=== PATIENT | female | born 1945 | race African-American/Black ===

== ENCOUNTER 2017-07-22 11:58 | Inpatient (IN) ==
[2017-07-22] MEDS ORDERED: ONDANSETRON 4 MG/2 ML VIAL IV PRN (12:00)
[2017-07-22] MEDS ORDERED: SODIUM CHLORIDE 0.9% 250 ML IV PRN (18:51)
--- NOTE | 2017-07-22 18:56 | Hospitalist Progress Note ---
Assessment and Plan (1) Symptomatic anemia Status: Acute Assessment and plan: The patient will be admitted to the hospital and we will obtain anemia laboratories. Following laboratory testing the patient will begin transfusion of 3 units packed red blood cells. We will obtain GI consultation tomorrow to consider endoscopy. Current Visit: Yes Hospitalist: Subjective Interval history: This is a 71-year-old lady referred from the office of CARMEN Leon. The patient presented there with dizziness and weakness. The patient was found to have profound anemia with hemoglobin 6.2. The patient was called from home to be directly admitted to the hospital for further evaluation of profound anemia. The patient and daughter are present. They deny a previous diagnosis of anemia. The patient no longer has menstrual cycle. They deny chemotherapy. The patient denies seeing blood in stool or coughing up blood. The patient denies hematuria. The patient's weakness and dizziness are moderate, continuous , and worsening. The patient's symptoms are associated with left earache. They are not associated with angina, palpitations, fever. A complete 10 system review is obtained all systems not mentioned in history present illness were negative. The patient was screened for tobacco and found to be an occasional smoker. She was given 4 minutes tobacco cessation advice. Exam - Constitutional Vitals: Period Temp Pulse Resp BP Sys/Lopez Pulse Ox Last 24 Hr 99 F 104 20 128/76 98 Exam: Constitutional System: Mild distress. No tremulousness. Head: Normocephalic, atraumatic. Ears, Nose and Throat System: No evidence of Otitis or Mastoiditis. No epistaxis or discharge Eyes System: Pupils equal, round, and reactive. Extraocular muscles intact. Neck: Supple, without adenopathy, No jugular venous distention. No thyromegaly , neck mass, or prior surgery apparent. Respiratory System: Chest clear to auscultation. Cardiovascular System: Heart with regular tachycardic rate and rhythm. 1+ flow murmur. GI System: Abdomen soft, nontender. Normo active bowel sounds present. Musculoskeletal System: limbs with no pedal edema. Full distal pulses. Neurological System: No discernable sensory deficit. No aphasia Psychiatric System: Conversation is rational Capillary Refill: less than 2 sec Results - Labs Lab Results: I have reviewed the past 24 hour labs
[2017-07-22 19:09] LABS: Basophils % 0.2 % (0.0-0.8); Eosinophils # 0.2 10*3/uL (0.0-0.87); Eosinophils % 2.4 % (0.00-10.9); Hematocrit 18.6 VOL% (35.7-47.0); Immature Granulocytes % 0.5 %; Immature Granulocytes Absolute 0.03 #; Lymphocytes # 1.3 10*3/uL (1.4-4.0); Lymphocytes % 19.1 % (21.3-54.2); Mean Corpuscular HGB Conc 30.1 GM/DL (32-36); Mean Corpuscular Hemoglobin 26 PG (27-34); Mean Corpuscular Volume 86.5 FL (87-102); Mean Platelet Volume 9.2 FL (9.6-12.0); Monocytes # 0.9 10*3/uL (0.11-0.8); Monocytes % 13.5 % (1.7-12.7); Neutrophils # 4.3 10*3/uL (1.4-7.4); Neutrophils % 64.3 % (38.7-73.9); Platelet Count 432 T/CUMM (130-400); Red Blood Count 2.15 MC/CUMM (3.8-5.5); Red Cell Distribution Width 14.8 % (9.3-17.3); White Blood Count 6.7 T/CUMM (4-12)
[2017-07-22 19:11] LABS: Hemoglobin 5.6 GM/DL (12.0-16.0)
[2017-07-22 19:34] LABS: % Iron Saturation 4.9 % (18-50); Ferritin 10.5 ng/ml (8-252)
[2017-07-22 19:40] LABS: Alanine Aminotransferase 16 U/L (13-56); Albumin 2.9 G/DL (3.4-5.0); Alkaline Phosphatase 50 U/L (45-117); Aspartate Amino Transferase 16 U/L (0-37); Bilirubin,Total < 0.39 MG/DL (0.2-1.0); Blood Urea Nitrogen 7 MG/DL (7-18); Calcium 8.2 MG/DL (8.5-10.1); Cholesterol 145 MG/DL (50-200); Glucose 157 MG/DL (74-106); HDL Cholesterol 48 MG/DL (40-60); Magnesium 2.4 MG/DL (1.8-2.4); Osmolality,Calculated 279.4 MOS/KG (273-304); Potassium 4.1 MMOL/L (3.5-5.1); Risk Ratio 3.02; Sodium 140 MMOL/L (136-145); Total Protein 5.4 G/DL (6.4-8.3); Triglycerides 69 MG/DL (2-150); VLDL CHOLESTEROL 13.8 MG/DL
[2017-07-22 19:41] LABS: Folate 23.2 NG/ML (5.4-24.0)
--- NOTE | 2017-07-22 19:52 | Hospitalist History & Physical ---
Assessment and Plan (1) Symptomatic anemia Status: Acute Assessment and plan: The patient is admitted to the hospital with Symptomatic microcytic anemia with iron deficiency. Following laboratory testing the patient will begin transfusion of 3 units packed red blood cells. We will obtain GI consultation tomorrow to consider endoscopy. Current Visit: Yes History of Present Illness Chief complaint: weakness, left ear pain History of present illness: This is a 71-year-old lady referred from the office of CARMEN Leon. The patient presented there with dizziness and weakness. The patient was found to have profound anemia with hemoglobin 6.2. The patient was called from home to be directly admitted to the hospital for further evaluation of profound anemia. The patient and daughter are present. They deny a previous diagnosis of anemia. The patient no longer has menstrual cycle. They deny chemotherapy. The patient denies seeing blood in stool or coughing up blood. The patient denies hematuria. The patient's weakness and dizziness are moderate, continuous , and worsening. The patient's symptoms are associated with left earache. They are not associated with angina, palpitations, fever. A complete 10 system review is obtained all systems not mentioned in history present illness were negative. The patient was screened for tobacco and found to be an occasional smoker. She was given 4 minutes tobacco cessation advice. Home Medications Medication Instructions Recorded Confirmed Type No Known Home Medications [No 07/22/17 07/22/17 History Known Home Medications] Allergies Allergy/AdvReac Type Severity Reaction Status Date / Time No Known Allergies Allergy Verified 07/22/17 18:28 Medical,Surgical,& Family Hx - Medical History HEENT: History of: Ear Problem (ear left pain) - Surgical History Abdominal Surgeries: Patient denies: Abdominal Surgery Reproductive Surgeries: Surgical HX of;: Hysterectomy Patient denies;: Genitourinary Surgery - Family History Family History: Reports;: Family Diabetes (mother), Family Hypertension (mother) Denies;: Family Cancer, Family Heart Disease, Family Stroke, Additional Family History - Social History Smoking Status: Never smoker Frequency of Alcohol Use: None Type of Drug Use: None Marital Status: Lives With:: Alone Functional capacity: independent ambulation 12 point system: reviewed and no additional remarkable complaints except as stated Exam - Constitutional Vitals: Period Temp Pulse Resp BP Sys/Lopez Pulse Ox Last 24 Hr 99 F 104 20 128/76 98 Exam: Constitutional System: Mild distress. No tremulousness. Head: Normocephalic, atraumatic. Ears, Nose and Throat System: No evidence of Otitis or Mastoiditis. No epistaxis or discharge Eyes System: Pupils equal, round, and reactive. Extraocular muscles intact. Neck: Supple, without adenopathy, No jugular venous distention. No thyromegaly , neck mass, or prior surgery apparent. Respiratory System: Chest clear to auscultation. Cardiovascular System: Heart with regular tachycardic rate and rhythm. 1+ flow murmur. GI System: Abdomen soft, nontender. Normo active bowel sounds present. Musculoskeletal System: limbs with no pedal edema. Full distal pulses. Neurological System: No discernable sensory deficit. No aphasia Psychiatric System: Conversation is rational Capillary Refill: less than 2 sec Results - Labs CBC & BMP: 07/22/17 18:45 07/22/17 18:45 Lab Results: I have reviewed the past 24 hour labs
[2017-07-22] MEDS: SODIUM CHLORIDE 0.9% 1,000 ML IV SCH (20:27)
[2017-07-22 21:31] LABS: Apearance,Urine CLEAR (Clear); Bilirubin,Urine Negative (Negative); Blood, Urine Negative (Negative); Glucose,Urine (UA) Negative (Negative); Ketones,Urine Negative (Negative); Nitrite,Urine Negative (Negative); Protein,Urine Negative; RBC,Urine <1 /HPF (0-4); Urine Color Straw (Yellow); Urine Specific Gravity 1.005 (1.001-1.035); Urine Urobilinogen < 2.0 EU/DL (0.2-1.0); WBC,Urine 3 /HPF (0-6)
[2017-07-23] MEDS: ACETAMINOPHEN 325 MG TABLET PO PRN ×3 (00:59→21:09)
[2017-07-23 06:31] LABS: Hemoglobin A1 (Alkaline) 97.3 % (96.5-98.5); Hemoglobin A2 (Alkaline) 2.7 % (1.5-3.5)
[2017-07-23 08:26] LABS: Hematocrit 28.8 VOL% (35.7-47.0)
[2017-07-23 08:33] LABS: Hemoglobin 9.2 GM/DL (12.0-16.0)
[2017-07-23] MEDS: PANTOPRAZOLE 40 MG TABLET PO SCH (08:38)
[2017-07-23] MEDS: SODIUM CHLORIDE 0.9% 1,000 ML IV SCH (08:38)
--- NOTE | 2017-07-23 09:26 | Gastrointestinal Consult Note ---
Assessment and Plan (1) Symptomatic anemia Status: Acute Assessment and plan: 07/23-Onset of weakness and fatigue with findings of low hemoglobin w/o overt bleeding. No prior history of anemia/blood transfusions in the past. Iron studies noted as below. Prior endoscopy by Dr Sandoval as noted below. Monitor serial H&H. Transfuse as necessary. Check for other endoscopy records at endoscopic clinic consider tentative EGD tomorrow to further evaluate. Plan and addendum to follow by Dr Brito. Current Visit: Yes History of Present Illness Chief complaint: Weakness, anemia History of present illness: Ms. Martínez is a 71 year old female who was admitted to the hospital on yesterday after being seen in clinic for complaints of dizziness and weakness. Patient states that over the last several days she began not feeling well with increased weakness. She also has an complaints of some ear pain therefore she presented to the clinic for evaluation. At that time, patient was found to have hemoglobin of 6 and was referred to our facility for further evaluation. Patient states that she has no prior history of anemia in the past. She denies any prior history of GI bleeding. She states that she had no other associated symptoms with her anemia at this time. She denies any melena or hematochezia. Denies any nausea, vomiting or abdominal pain. States she has no dysphagia but has complained of some GERD which she does not take anything far. She also has noted some dyspepsia symptoms with increased belching bloating as of recently. Patient states she takes 1 Advil every other day but no other NSAIDs. She does take a baby aspirin daily as well. Patient does smoke but she denies any history of alcohol use. She states that she has lost approximately 10-15 pounds over the last year just with decreased appetite. She has never had a blood transfusion in the past. Patient was admitted with H&H of 03/20 and after 3 units on 07/31. Stools for occult blood are pending at present time. Iron studies are noted with low iron at 15, saturation of 4.9 with normal TIBC and ferritin. MCV noted at 86. Prior endoscopy has been done by Dr. Sandoval. Most recent endoscopy noted in 2003 with findings of internal hemorrhoids on C scope and submucosal leiomyoma with hiatal hernia on EGD. No reported prior history of peptic ulcer disease in the past patient states she has had more recent endoscopy but no reports noted in facility database. Home Medications Medication Instructions Recorded Confirmed Type No Known Home Medications [No 07/22/17 07/22/17 History Known Home Medications] Allergies Allergy/AdvReac Type Severity Reaction Status Date / Time No Known Allergies Allergy Verified 07/22/17 18:28 Medical,Surgical,& Family Hx - Medical History HEENT: History of: Ear Problem (ear left pain) - Surgical History Abdominal Surgeries: Patient denies: Abdominal Surgery Reproductive Surgeries: Surgical HX of;: Hysterectomy Patient denies;: Genitourinary Surgery - Family History Family History: Reports;: Family Diabetes (mother), Family Hypertension (mother) Denies;: Family Cancer, Family Heart Disease, Family Stroke, Additional Family History - Social History Smoking Status: Never smoker Frequency of Alcohol Use: None Type of Drug Use: None 12 point system: reviewed and no additional remarkable complaints except as stated - Constitutional Constitutional: Present: as per HPI, fatigue, weakness - EENT Eyes: Present: as per HPI Ears: Present: as per HPI Nose, mouth and throat: Present: as per HPI - Cardiovascular Cardiovascular: Present: as per HPI - Respiratory Respiratory: Present: as per HPI - Gastrointestinal Gastrointestinal: Present: as per HPI - Genitourinary Genitourinary: Present: as per HPI - Musculoskeletal Musculoskeletal: Present: as per HPI - Neurological Neurological: Present: as per HPI - Psychiatric Psychiatric: Present: as per HPI - Endocrine Endocrine: Present: as per HPI Exam - Constitutional Vitals: Period Temp Pulse Resp BP Sys/Lopez Pulse Ox Last 24 Hr 96.4 F-99.7 F 66-108 18-20 97-129/49-85 96-100 General appearance: normal weight, no acute distress - Head Head exam: Present: normal inspection, normocephalic - Eye Eye exam: Present: other (lids and conjunctiva unremarkable). Absent: scleral icterus - ENT ENT exam: Present: normal exam, normal oropharynx - Neck Neck exam: Present: normal inspection - Respiratory Respiratory exam: Present: clear to auscultation bilaterally. Absent: rales, rhonchi, wheezes - Cardiovascular Cardiovascular exam: Present: regular rate and rhythm. Absent: diastolic murmur , JVD, systolic murmur - GI/Abdominal GI/Abdominal exam: Present: normal bowel sounds, soft. Absent: ascites, distended, mass, organomegaly, tenderness - Extremities Exam Extremities exam: Present: normal inspection, full ROM - Back Exam Back exam: Present: normal inspection - Neurological Exam Neurological exam: Present: alert, oriented X3 - Psychiatric Psychiatric exam: Present: normal affect, normal mood - Skin Skin exam: Present: normal color, warm, dry Results - Labs CBC & BMP: 07/23/17 08:08 07/22/17 18:45 Lab Results: I have reviewed the past 24 hour labs
--- NOTE | 2017-07-23 12:13 | Hospitalist Progress Note ---
Assessment and Plan (1) Symptomatic anemia Status: Acute Assessment and plan: transfused with good increase in HGB to 9.2 from 5.6. GI to see and likely will do EGD tomorrow. Replace iron. Current Visit: Yes Hospitalist: Subjective Interval history: Mrs Martínez is feeling better this morning after transfusion. I reviewed her history with her again and she denies epistaxis, hematemesis, hematochezia, vaginal bleeding or any other blood loss. She remembers her cscope 3 years ago being normal. She has never been anemic before. She has never been much of an eater- usually 1 meal a day, sometimes breakfast also. She thinks her anemia may be due to nutritional problems. Her B12 and folate are normal, but her iron studies are low. Exam - Constitutional Vitals: Period Temp Pulse Resp BP Sys/Lopez Pulse Ox Last 24 Hr 96.4 F-99.7 F 66-108 18-20 97-129/49-85 94-100 General appearance: normal weight, no acute distress - Eye Eye exam: Present: EOMI. Absent: scleral icterus - Respiratory Respiratory exam: Present: clear to auscultation bilaterally - Cardiovascular Cardiovascular exam: Present: regular rate and rhythm - GI/Abdominal GI/Abdominal exam: Present: normal bowel sounds, soft - Extremities Exam Extremities exam: Absent: edema Results - Labs CBC & BMP: 07/23/17 08:08 07/22/17 18:45 Lab Results: I have reviewed the past 24 hour labs
[2017-07-23] MEDS ORDERED: MAGNESIUM HYDROXIDE SUSP 30 ML UDCUP PO PRN (12:20)
[2017-07-23] MEDS ORDERED: BISACODYL 5 MG TABLET PO PRN (15:34)
[2017-07-23] MEDS: LINACLOTIDE 145 MCG CAPSULE PO PRN (16:45)
[2017-07-24 06:09] LABS: Hematocrit 27.2 VOL% (35.7-47.0); Hemoglobin 8.6 GM/DL (12.0-16.0)
[2017-07-24] MEDS ORDERED: LIDOCAINE 2% 5 ML VIAL ONE (12:31)
[2017-07-24] MEDS ORDERED: PROPOFOL 200 MG/20 ML VIAL IV ONE (12:31)
--- NOTE | 2017-07-24 12:31 | History and Physical Update ---
History and Physical Update - History and Physical H&P was reviewed, the patient examined and there: are no changes in the patients condition since last H&P was completed. - Physical Exam Mental Status: alert and oriented Heart: regular rate and rhythm Lung: clear to auscultation Abdomen: within normal limits Vitals: within normal limits
--- NOTE | 2017-07-24 12:43 | Operative Note ---
Date of procedure: 07/24/17 Pre-op diagnosis: GI bleed, iron deficiency Procedure: Procedure: Esophagogastroduodenoscopy with biopsies gastric ulcer Brief clinical abstract: 71-year-old female was admitted with weakness and marked anemia with iron deficiency. She has noted no gross GI bleeding. She has had some off-and-on nausea recently and 10 pound weight loss. Indication for procedure: Iron deficiency, nausea Endoscopic findings:[After informed consent was obtained, the patient was placed in the left lateral decubitus position. The gastroscope was inserted in the upper esophagus under direct vision with no resistance encountered. Esophageal mucosa appeared normal with squamocolumnar junction sharply demarcated at the diaphragmatic indentation. The endoscope was advanced in the stomach which was carefully examined including retroflexed view of the cardia and fundus. There was a large ulcer 4-5 cm in diameter with some mass-effect just below the GE junction in the proximal fundus extending posteriorly. Multiple biopsies were obtained from this and it was noted to have a firm consistency. Remainder the stomach appeared normal. The pyloric channel, duodenal bulb, second and third portion of the duodenum appeared normal. The endoscope was removed and patient appeared to tolerate the procedure well. Impression: Large gastric ulcer-malignant appearance Recommendations: CT abdomen/pelvis to evaluate further. Anesthesia: GETA (tiva) Surgeon / Physician: Torres Brito Estimated blood loss: minimal Specimens: other (Gastric ulcer) Condition: stable Disposition: post procedure unit Results - Labs CBC & BMP: 07/24/17 04:37 07/22/17 18:45 Discharge Plan - Discharge Medications No Action Linaclotide [Linzess] 290 mcg PO DAILY PRN PRN Reason: Constipation - Follow Up or Referral - Forms/Instructions
--- NOTE | 2017-07-24 12:44 | Anesthesia Post-Op ---
Anesthesia Post OP - Post Ansesthetic Evaluation Patient seen in post op: Yes Resp: within normal limits CV: within normal limits Mental: within normal limits Temp: within normal limits [id number]: within normal limits Nausea and Vomiting: within normal limits Pain: within normal limits
[2017-07-24] MEDS: SODIUM CHLORIDE 0.9% 1,000 ML IV SCH ×2 (14:27→16:22)
[2017-07-24] MEDS: PANTOPRAZOLE 40 MG TABLET PO SCH (15:18)
--- NOTE | 2017-07-24 16:45 | Consultation ---
Assessment and Plan (1) Otalgia of left ear Status: Acute Assessment and plan: Patient does not seem very bothered by this throughout interview and exam was unremarkable. We will continue to observe. Current Visit: Yes (2) Tinnitus Status: Acute Assessment and plan: This has improved with her transfusions. If it continues, I did discuss some possibility of outpatient management. Current Visit: Yes (3) Dizziness Status: Acute Assessment and plan: Most of her dizziness is change in position especially with standing. This has also improved with transfusions and likely secondary to her symptomatic anemia. I encouraged ambulation with assistance. Current Visit: Yes History of Present Illness - Data of Consult Patient: new to practice Consult date: 07/24/17 - Consult Narrative Reason for consult: Otalgia History of present illness: Ms. Martínez is a 71 year old female who complains of ear pain, dizziness, and tinnitus. She admits to intermittent ear pain without drainage. It does not seem very bothersome during her interview as her other symptoms. She has also noted recent dizziness and tinnitus which presents as pulsatile and ringing. She was admitted due to anemia and has been transfused during this hospitalization. She was also found to have a GI bleed. Since her transfusion, her symptoms have improved, but still present. She has been ambulating. CC: Janina Montgomery MD - Home Medications and Allergies Home Medications: Home Medications Medication Instructions Recorded Confirmed Type Linaclotide [Linzess] 290 mcg PO DAILY PRN 07/23/17 07/23/17 History Allergies/Adverse Reactions: Allergies Allergy/AdvReac Type Severity Reaction Status Date / Time No Known Allergies Allergy Verified 07/22/17 18:28 Medical,Surgical,& Family Hx - Medical History Neurology: No history of: Seizures HEENT: History of: Ear Problem (ear left pain) - Surgical History Abdominal Surgeries: Patient denies: Abdominal Surgery Reproductive Surgeries: Surgical HX of;: Hysterectomy Patient denies;: Genitourinary Surgery - Family History Family History: Reports;: Family Diabetes (mother), Family Hypertension (mother) Denies;: Family Cancer, Family Heart Disease, Family Stroke, Additional Family History - Social History Smoking Status: Current some day smoker Frequency of Alcohol Use: None Type of Drug Use: None Exam - Constitutional Vitals: Period Temp Pulse Resp BP Sys/Lopez Pulse Ox Last 24 Hr 97.6 F-99.1 F 66-85 16-24 106-140/57-068 96-100 General appearance: normal weight, no acute distress - Head Head exam: Present: normal inspection, normocephalic - Eye Eye exam: Present: EOMI - ENT ENT exam: Present: normal external ear exam, other (minimal cerumen in left ear) - Expanded ENT Exam Teeth exam: Present: other (Poor dentation) Throat exam: Present: normal inspection - Neck Neck exam: Present: normal inspection - Respiratory Respiratory exam: Present: other (Normal effort and movement bilaterally) - GI/Abdominal GI/Abdominal exam: Present: soft - Extremities Exam Extremities exam: Present: normal inspection - Neurological Exam Neurological exam: Present: alert, oriented X3, CN II-XII intact (groslly) - Psychiatric Psychiatric exam: Present: normal affect, normal mood - Skin Skin exam: Present: normal color, warm Results - Labs CBC & BMP: 07/24/17 04:37 07/22/17 18:45 Lab Results: I have reviewed the past 24 hour labs
--- NOTE | 2017-07-24 17:20 | Hospitalist Progress Note ---
Assessment and Plan (1) Otalgia of left ear Status: Acute Assessment and plan: with Tinnitus and dizziness. Plan Appreciates ENT's input Current Visit: Yes (2) Symptomatic anemia Status: Acute Assessment and plan: Patient has been transfused. She had an EGD which showed a Large gastric ulcer- malignant appearance Plan Follow CT of abd/pelvis Follow GI's recommendations Continue to monitor cbc and transfuse on a prn basis Current Visit: Yes Hospitalist: Subjective Interval history: Patient complains of a left ear pain. ENT saw in consultation Exam - Constitutional Vitals: Period Temp Pulse Resp BP Sys/Lopez Pulse Ox Last 24 Hr 97.6 F-99.1 F 66-85 16-24 106-140/57-068 96-100 General appearance: no acute distress - Head Head exam: Present: normal inspection - Expanded ENT Exam Teeth exam: Present: other (Poor dentation) Throat exam: Present: normal inspection - Respiratory Respiratory exam: Present: clear to auscultation bilaterally - GI/Abdominal GI/Abdominal exam: Present: normal bowel sounds - Extremities Exam Extremities exam: Present: normal inspection Results - Labs CBC & BMP: 07/24/17 04:37 07/22/17 18:45 Lab Results: I have reviewed the past 24 hour labs
[2017-07-24] MEDS: ACETAMINOPHEN 325 MG TABLET PO PRN (19:56)
[2017-07-25 05:43] LABS: Basophils % 0.3 % (0.0-0.8); Eosinophils # 0.2 10*3/uL (0.0-0.87); Eosinophils % 3.1 % (0.00-10.9); Hematocrit 30.1 VOL% (35.7-47.0); Hemoglobin 9.4 GM/DL (12.0-16.0); Immature Granulocytes % 0.3 %; Immature Granulocytes Absolute 0.02 #; Lymphocytes # 1.3 10*3/uL (1.4-4.0); Lymphocytes % 18.2 % (21.3-54.2); Mean Corpuscular HGB Conc 31.2 GM/DL (32-36); Mean Corpuscular Hemoglobin 27 PG (27-34); Mean Corpuscular Volume 86.2 FL (87-102); Mean Platelet Volume 9.4 FL (9.6-12.0); Monocytes # 0.8 10*3/uL (0.11-0.8); Monocytes % 11.8 % (1.7-12.7); Neutrophils # 4.7 10*3/uL (1.4-7.4); Neutrophils % 66.3 % (38.7-73.9); Platelet Count 424 T/CUMM (130-400); Red Blood Count 3.49 MC/CUMM (3.8-5.5); Red Cell Distribution Width 14.4 % (9.3-17.3); White Blood Count 7.1 T/CUMM (4-12)
[2017-07-25] MEDS: ACETAMINOPHEN 325 MG TABLET PO PRN (07:19)
[2017-07-25 08:12] VITALS: BP 114/56
--- NOTE | 2017-07-25 08:21 | CT Report ---
Exam: CT abdomen pelvis w con Date: 07/25/2017 4:00 AM Comparison: None Indication: Gastric ulcer, mass Total DLP: 398.5 mGy*cm Technical: Exam was performed oral contrast. Images were obtained from the lung bases to the iliac crest continuation through the pelvis with 100 cc of Omnipaque 350 with axial sagittal coronal imaging available for review. Dose reduction was performed with decreasing kv and mA and automated exposure Findings: Lung bases: No obvious infiltrates or effusions. The heart is mildly prominent. Liver and Spleen: 1.6 cm hypodensity mass is present in the lateral right hepatic lobe. The hepatic and portal veins are unremarkable. The spleen is intact. Gallbladder and Pancreas: Unremarkable Adrenals: Unremarkable Kidneys: Tiny cyst is present on the right kidney measuring 8.4 mm. There is no hydronephrosis perinephric fluid collections or focal mass with normal excretion otherwise noted. Stomach: Stomach is enlarged with low density and solid appearing mass present and some calcifications present. The stomach has lobulated margins. Stomach measures approximately 19 cm in height anterior posteriorly the stomach is measured at 14 cm and transversely 8.9 cm. No oral contrast is present in the stomach previous exam. Retroperitoneum: No enlarged lymph nodes. Aorta and IVC: Very minimal atherosclerotic plaque present. The iliac vessels are unremarkable. Bowel and Mesentery: Contrast is present within the large and small intestine without obvious mass lesions clearly seen. No obvious bowel obstruction or pneumoperitoneum present. The appendix is unremarkable. Pelvis: Bladder: Incompletely distended with contrast and fluid Fluid: No free fluid identified. Lymph nodes: No enlarged lymph nodes. Pelvic organs: The uterus appears be surgically absent or extremely atrophic Osseous structures: Degenerative change present in the lumbosacral spine with vacuum phenomena at L4-5. Only pelvis is intact. Facet arthropathy is noted. Impression: 1. Enlarged stomach with in homogeneity and lobulated mass lesions with some cystic and solid characteristics present. Differential diagnosis gastrointestinal stromal tumor tumor, leiomyosarcoma ,gastric lymphoma are considered in the differential 2. Hypodensity within the liver measuring 16 mm as well as in the right kidney measuring approximately 8.4 mm these appear to represent cystic findings. 3. Degenerative spondylosis change of the lumbosacral spine with vacuum phenomenon at L4-5. 4. Prior hysterectomy suspected PROCEDURE INTERPRETED AT [facility] DEPARTMENT OF RADIOLOGY Final Report Signed by: Dr. Torres Hernandez
[2017-07-25] MEDS: PANTOPRAZOLE 40 MG TABLET PO SCH (09:02)
--- NOTE | 2017-07-25 09:27 | Gastrointestinal Progress Note ---
Assessment and Plan (1) Symptomatic anemia Status: Acute Assessment and plan: 07/25-EGD and CT findings noted as below. H&H is stable at this time. Tolerating diet. Further plan an addendum to followed by Dr. Brito 07/23-Onset of weakness and fatigue with findings of low hemoglobin w/o overt bleeding. No prior history of anemia/blood transfusions in the past. Iron studies noted as below. Prior endoscopy by Dr Sandoval as noted below. Monitor serial H&H. Transfuse as necessary. Check for other endoscopy records at endoscopic clinic consider tentative EGD tomorrow to further evaluate. Plan and addendum to follow by Dr Brito. Current Visit: Yes Gastroenterology - PN: Subj Interval history: CC: Anemia, GI bleed Patient is seen sitting up in bed awake and alert. States she rested well last night. She is denying any abdominal pain, nausea or vomiting. She is tolerating her diet well with good appetite. Her main complaint is some mild constipation is requesting a laxative for this. EGD findings on yesterday noted for large gastric ulcer with malignant appearance. She had a CT of the abdomen this morning with contrast which showed enlarged stomach with a lobulated mass lesions with cystic and solid characteristics with differential of stromal tumor, leiomyosarcoma, or possible lymphoma. Also noted hypodensity in the liver and kidney representing cyst. Abdomen is soft, nontender. H&H is stable at 08/02. ROS: Denies shortness of breath or chest pain Exam (Progress Note) - Constitutional Vitals: Period Temp Pulse Resp BP Sys/Lopez Pulse Ox Last 24 Hr 98 F-98.4 F 66-97 16-24 106-130/56-068 96-100 - Other Additional findings: General appearance: normal weight, no acute distress - Head Head exam: Present: normal inspection, normocephalic - Eye Eye exam: Present: other (lids and conjunctiva unremarkable). Absent: scleral icterus - ENT ENT exam: Present: normal exam, normal oropharynx - Neck Neck exam: Present: normal inspection - Respiratory Respiratory exam: Present: clear to auscultation bilaterally. Absent: rales, rhonchi, wheezes - Cardiovascular Cardiovascular exam: Present: regular rate and rhythm. Absent: diastolic murmur , JVD, systolic murmur - GI/Abdominal GI/Abdominal exam: Present: normal bowel sounds, soft. Absent: ascites, distended, mass, organomegaly, tenderness - Extremities Exam Extremities exam: Present: normal inspection, full ROM - Back Exam Back exam: Present: normal inspection - Neurological Exam Neurological exam: Present: alert, oriented X3 - Psychiatric Psychiatric exam: Present: normal affect, normal mood - Skin Skin exam: Present: normal color, warm, dry Results - Labs CBC & BMP: 07/25/17 05:10 07/22/17 18:45 Lab Results: I have reviewed the past 24 hour labs - Diagnostic Findings Procedure: CT Abdomen and Pelvis: report reviewed by me
--- NOTE | 2017-07-25 09:59 | Oncology Progress Note ---
Oncology Subjective PN Interval history: Patient with newly found intra-abdominal pathology. A biopsy is pending. I will go ahead and order tumor markers and await the results of the pathology report before dictating a consult note. Thank you. Exam - Constitutional Vitals: Period Temp Pulse Resp BP Sys/Lopez Pulse Ox Last 24 Hr 98 F-98.4 F 66-97 16-24 106-130/56-068 96-100 Results - Labs CBC & BMP: 07/25/17 05:10 07/22/17 18:45
[2017-07-25 11:02] LABS: AFP Tumor 3.4 NG/ML (0-8); Cancer Antigen 19-9 78.2 U/ML (0-37); Carcinoembryonic Antigen < 0.5 NG/ML (0.0-5.0)
[2017-07-25] MEDS: LINACLOTIDE 145 MCG CAPSULE PO PRN (11:06)
--- NOTE | 2017-07-25 14:18 | Hospitalist Progress Note ---
Assessment and Plan (1) Otalgia of left ear Status: Acute Assessment and plan: with Tinnitus and dizziness. Plan Appreciates ENT's input Current Visit: Yes (2) Symptomatic anemia Status: Acute Assessment and plan: Patient has been transfused. She had an EGD which showed a Large gastric ulcer- malignant appearance Plan Follow CT of abd/pelvis Follow GI's recommendations Continue to monitor cbc and transfuse on a prn basis Current Visit: Yes Exam - Constitutional Vitals: Period Temp Pulse Resp BP Sys/Lopez Pulse Ox Last 24 Hr 98 F-98.4 F 67-97 16-20 114-130/56-60 98-100 - Expanded ENT Exam Teeth exam: Present: other (Poor dentation) Throat exam: Present: normal inspection Results - Labs CBC & BMP: 07/25/17 05:10 07/22/17 18:45
--- NOTE | 2017-07-25 14:51 | Discharge Summary ---
<Pepper Joe - Last Filed: 07/25/17 14:45> Hospital Course - Hospital Course Hospital Course: 71-year-old female referred from [facility], admitted by the hospitalist on 07/22/2017 with symptomatic microcytic anemia with iron deficiency. She had an initial hemoglobin of 5.6/18.6. She received 3 units of blood in her post transfusion H&H from this morning is 9.4/30.1. Patient feels a lot better. She did have some dizziness and tinnitus and Dr. Russo was consulted. Her dizziness did improve somewhat with transfusions. He recommends physical therapy so will do this up as an outpatient. Dr. Brito from GI was also consulted and he did an EGD on the patient on 07/24/2017 that showed a large gastric ulcer that appeared malignant. Final pathology has not returned but this is thought to be a gist tumor. CT the abdomen and pelvis done would be consistent with this. There is no obvious metastatic disease noted on the CT scan. Dr. Louise from oncology also stopped by to see the patient. Once pathology returns Dr. Brito will set patient up with a surgeon and she wants to use one in [place]. Dr. Louise at that time time can also decide plan of care per pathology results. Patient has reached Hospital benefit. She has no overt bleeding at this time and her H&H stable. She will be discharged home with a follow-up phone call from Dr. Brito once pathology returns. Care coordination, chart review, and completed discharge paperwork took approximately 35 minutes. - Time spent with patient Time with patient DS: Greater than 30 minutes Diagnosis - Discharge Diagnosis (1) Gastric tumor Status: Acute (2) Symptomatic anemia Status: Resolved (3) Otalgia of left ear Status: Resolved (4) Tinnitus Status: Resolved (5) Dizziness Status: Resolved Specialty Discharge - Follow Up or Referrals Follow up with: Torres Brito MD [Physician] - (await phone call from dr brito' s office about pathology for next week) Discharge Plan - Discharge Data Disposition: Disch To Home/Self Care Condition at Discharge: Stable Discharge Diet: advance to your usual diet Activity: resume usual activities as tolerated Contact your physician if you experience:: fever over 101, Nausea/Vomiting, pain uncontrolled by pain medications - Discharge Medications Continue Linaclotide [Linzess] 290 mcg PO DAILY PRN PRN Reason: Constipation - Follow Up or Referral Follow Up: Torres Brito MD [Physician] - (await phone call from dr brito' s office about pathology for next week) - Forms/Instructions Instructions: Anemia (DC) Exam - Constitutional Vitals: Period Temp Pulse Resp BP Sys/Lopez Pulse Ox Last 24 Hr 98 F-98.4 F 67-97 16-20 114-130/56-60 98-100 Exam: 71-year-old female, no acute distress, alert and oriented Chest clear CV regular rate and rhythm Abdomen soft nontender, extremities no edema Discharge Results Procedures and tests throughout hospitalization: Pending Orders 07/23/17 18:50 Occult Blood, Stool Routine 07/25/17 05:08 Cancer Antigen 125 Routine Labs on day of discharge: Labs from last 24 hours 07/25/17 07/25/17 05:10 05:08 WBC 7.1 RBC 3.49 L D Hgb 9.4 L Hct 30.1 L MCV 86.2 L MCH 27 MCHC 31.2 L RDW 14.4 Plt Count 424 H MPV 9.4 L Neut % (Auto) 66.3 Lymph % (Auto) 18.2 L [place] % (Auto) 11.8 Eos % (Auto) 3.1 Baso % (Auto) 0.3 Neut # (Auto) 4.7 Lymph # (Auto) 1.3 L [place] # (Auto) 0.8 Eos # (Auto) 0.2 Baso # (Auto) 0.0 Immature Gran % 0.3 Nucleated RBC % 0.0 Immature Gran # 0.02 Nucleated RBCs # 0.00 Immature Plt Fraction 0.0 Tumor Marker AFP 3.4 Carcinoembryonic Ag < 0.5 CA 19-9 Antigen 78.2 H DS: Provider Date of admission: 07/22/17 17:53 Primary care physician: Linda Lubin MD Attending physician on admission: Keely Doty MD Consults: 07/22/17 12:00 Consult to Physician [CONS] Routine Comment: Consulting Provider: Torres Brito Consulting Provider Notified: Yes When should Consulting Provider be notified: Now Consult to Specialist Group: Gastroenterology When should Consulting Provider be notified: Now Person Notified: IBRAHIMA Date Notified: 07/23/17 Time Notified: 10:51 07/24/17 10:47 Consult to Physician [CONS] Routine Comment: left ear pain, drainage Consulting Provider: Noel Russo Consulting Provider Notified: Yes When should Consulting Provider be notified: Now Consult to Specialist Group: ENT When should Consulting Provider be notified: Now Person Notified: RADHA Date Notified: 07/24/17 Time Notified: 13:45 07/25/17 09:53 Consult to Physician [CONS] Routine Comment: masses on ct, biopsy of ulcer pending Consulting Provider: Huber Louise Consulting Provider Notified: Yes When should Consulting Provider be notified: Now Consult to Specialist Group: Oncology When should Consulting Provider be notified: Now Person Notified: VEE Date Notified: 07/25/17 Time Notified: 10:11 07/25/17 10:11 Consult to Physical Therapy [CONS] Routine Reason for Physical Therapy: Evaluate and Treat Ambulation Other Consult Comment: Please consult Jacquie Todd for evaluation and treatment Discharging clinician: CHAUNCEY Mcbride Expected date of discharge: 07/25/17 <Janina Montgomery - Last Filed: 07/25/17 17:02> Hospital Course - Time spent with patient Time with patient DS: Greater than 30 minutes Diagnosis - Discharge Diagnosis (1) Otalgia of left ear Status: Resolved (2) Symptomatic anemia Status: Resolved (3) Gastric tumor Status: Acute Exam - Constitutional General appearance: no acute distress - Head Head exam: Present: normal inspection - Respiratory Respiratory exam: Present: clear to auscultation bilaterally - Cardiovascular Cardiovascular exam: Present: regular rate and rhythm - GI/Abdominal GI/Abdominal exam: Present: normal bowel sounds - Extremities Exam Extremities exam: Present: normal inspection
--- NOTE | 2017-07-25 16:17 | Pathology Report from [facility] ---
[facility] [place] ACCESSION # : [id number] PATIENT NAME : Maia Richmond ORDERING DR : LEX WILLIS MD CLINICAL HX: Weight loss POST-OP DX: Gastric ulcer SPECIMEN INFO: Biopsy of gastric GROSS DESCRIPTION: The specimen is received in formalin labeled with the patients name and consists of fragments of pink-kirkland mucosal tissue collectively measuring 0.7 x 0.5 cm. Submitted in one cassette. DIAGNOSIS FOR MAIA RICHMOND: STOMACH, BIOPSY : TYPE: Gastrointestinal Stromal Tumor, Spindle SITE: Stomach SIZE: 0.7 x 0.5 cm. FOCALITY: Unifocal. MITOTIC RATE: 1 MF/ 5 mm2. GRADE: Low grade (<5 MF/ 5 mm2) NECROSIS: Present, 50% of tumor. RISK OF PROGRESSIVE DISEASE: Dependet upon size of primary tumor. IHC STUDIES: KIT (CD117): Positive ; DOG1: Negative. AJCC PATHOLOGIC STAGE: pTx COLLECTED DATE: 07/24/2017 [facility] REPORT DATE: 07/25/2017 ELECTRONICALLY SIGNED BY: Alejandro Manuel III, M.D. 07/25/2017 - 13:57:50 [facility]Gordon
[2017-07-25] MEDS: SODIUM CHLORIDE 0.9% 1,000 ML IV SCH (16:50)
== END 2017-07-25 16:15 | disposition home or self-care (01) | DRG 544 ==
LOC: SUATTDRO 17:53 → N.4E 17:53
PROVIDERS: ADMIT Internal Medicine; ATTEND Internal Medicine

== ENCOUNTER 2017-08-11 17:01 | Inpatient (IN) ==
[2017-08-11] MEDS ORDERED: DOCUSATE SODIUM 100 MG CAPSULE PO PRN (18:32)
[2017-08-11] MEDS ORDERED: LACTULOSE 20 GM/30 ML UDCUP PO PRN (18:32)
[2017-08-11] MEDS ORDERED: SODIUM CHLORIDE 0.9% 250 ML IV PRN (18:32)
[2017-08-11] MEDS: ACETAMINOPHEN 325 MG TABLET PO PRN (18:56)
[2017-08-11] MEDS: SODIUM CHLORIDE 0.9% 1,000 ML IV SCH (18:57)
[2017-08-11 19:20] LABS: Basophils % 0.3 % (0.0-0.8); Eosinophils # 0.2 10*3/uL (0.0-0.87); Eosinophils % 1.9 % (0.00-10.9); Hematocrit 20.7 VOL% (35.7-47.0); Immature Granulocytes % 0.5 %; Immature Granulocytes Absolute 0.04 #; Lymphocytes # 1.5 10*3/uL (1.4-4.0); Lymphocytes % 18.9 % (21.3-54.2); Mean Corpuscular HGB Conc 30.4 GM/DL (32-36); Mean Corpuscular Hemoglobin 27 PG (27-34); Mean Corpuscular Volume 87.3 FL (87-102); Mean Platelet Volume 9.5 FL (9.6-12.0); Monocytes # 1.2 10*3/uL (0.11-0.8); Monocytes % 15.5 % (1.7-12.7); Neutrophils % 62.9 % (38.7-73.9); Platelet Count 435 T/CUMM (130-400); Red Blood Count 2.37 MC/CUMM (3.8-5.5); White Blood Count 7.9 T/CUMM (4-12)
[2017-08-11] MEDS ORDERED: POLYETHYLENE GLYCOL POWDER 17 GM PACK PO PRN (19:34)
[2017-08-11 19:38] LABS: Hemoglobin 6.3 GM/DL (12.0-16.0)
[2017-08-11 19:51] LABS: Calcium 8.1 MG/DL (8.5-10.1); Osmolality,Calculated 280.3 MOS/KG (273-304); Potassium 3.5 MMOL/L (3.5-5.1)
[2017-08-11 19:57] LABS: % Iron Saturation 59.7 % (18-50)
--- NOTE | 2017-08-11 20:17 | Hospitalist History & Physical ---
<Marielena Rodríguez - Last Filed: 08/11/17 19:54> Assessment and Plan - Time spent with patient Time spent with patient: Less than 30 minutes (1) Symptomatic anemia Status: Acute Assessment and plan: Anemia studies pending T/CM 2 units. Transfuse when ready Post infusion H/H Current Visit: Yes (2) Gastric tumor Status: Chronic Assessment and plan: Oncology consultation Current Visit: Yes (3) Dizziness Status: Acute Current Visit: Yes History of Present Illness Chief complaint: weakness History of present illness: Ms. Martínez is a 71 year old female that is a direct admit from [facility] office. She was admitted in Jul 2017 for symptomatic anemia with iron deficiency. H/H upon admission was 03/20. She received 3 units of PRBCs. GI was consulted and an upper GI was done that revealed a gastric tumor. She was discharged with an appointment to follow up with Dr. Brito once pathology results returned. She was referred to Dr. Elliott in [place], unsure of his recommendations. Her H/H at that time was stable and she was given an appointment with Dr. Mann that is next . In the meantime, she has experienced dizziness and weak spells for the past two weeks. She states she gets short of breath upon exertion and feels as though she does not have any energy. Additional complaints include nausea and low grade fevers of 99.0 orally. She denies chest pain, v/d, coughing, hematuria, hematemesis, or melena. She saw [facility] today and her H/H was 05/25. Additional history includes hysterectomy, constipation, and PROTOCOL MANAGER shunt placement. She will be admitted under hospital services, anemia studies pending, blood transfusions as appropriate, and oncology consultation. Patient is currently taking no medications. She is a full code. Home Medications Medication Instructions Recorded Confirmed Type No Known Home Medications [No 08/11/17 08/11/17 History Known Home Medications] Allergies Allergy/AdvReac Type Severity Reaction Status Date / Time No Known Allergies Allergy Verified 07/22/17 18:28 Medical,Surgical,& Family Hx - Medical History Cardio: No history of: Cardiovascular Problems Psychological: No history of: Psychiatric Problems Neurology: No history of: Seizures HEENT: No history of: HEENT Problems Endocrine: No history of: Endocrine Problems Rheumatology: No history of;: Rheumatological Problems Respiratory: No history of: Respiratory Problems Renal: No history of: Renal Problems Genitourinary: No history of: Problems Gastrointestinal: No history of: GI Problems Musculoskeletal: No history of: Musculoskeletal Problems Hematology: History of: Anemia Reproductive: No history of: Reproductive Problems Other: No history of: Miscellaneous Medical Problems - Surgical History Abdominal Surgeries: Patient denies: Abdominal Surgery Reproductive Surgeries: Surgical HX of;: Hysterectomy Patient denies;: Genitourinary Surgery - Family History Family History: Reports;: Family Diabetes (mother), Family Hypertension (mother) Denies;: Family Cancer, Family Heart Disease, Family Stroke - Social History Smoking Status: Never smoker Frequency of Alcohol Use: None Type of Drug Use: None Marital Status: Lives With:: Alone Functional capacity: independent ambulation - Constitutional Constitutional: Present: fatigue, weakness. Absent: anorexia, excessive sweating - EENT Eyes: Absent: blurry vision Ears: Absent: tinnitus Nose, mouth and throat: Absent: headache(s), sore throat - Cardiovascular Cardiovascular: Present: dyspnea. Absent: chest pain at rest, chest pain with activity, diaphoresis, edema, palpitations - Respiratory Respiratory: Absent: cough - Gastrointestinal Gastrointestinal: Absent: abdominal pain, diarrhea, dyspepsia, nausea, vomiting - Genitourinary Genitourinary: Absent: difficulty urinating - Musculoskeletal Musculoskeletal: Absent: back pain - Neurological Neurological: Present: dizziness. Absent: convulsions - Psychiatric Psychiatric: Absent: anxiety - Endocrine Endocrine: Absent: cold intolerance, heat intolerance - Hematologic/Lymphatic Hematologic/Lymphatic: Absent: easy bleeding Exam - Constitutional Vitals: Period Temp Pulse Resp BP Sys/Lopez Pulse Ox Last 24 Hr 97.3 F 105 16 147/72 100 General appearance: normal weight, no acute distress - Head Head exam: Present: normal inspection, normocephalic - Eye Eye exam: Present: EOMI Pupils: Present: JR, normal accommodation - ENT ENT exam: Present: normal exam - Neck Neck exam: Present: normal inspection - Respiratory Respiratory exam: Present: clear to auscultation bilaterally (Respirations even and non-labored with symmetrical rise and fall of chest noted. ). Absent: accessory muscle use - Cardiovascular Cardiovascular exam: Present: regular rate and rhythm. Absent: diastolic murmur , systolic murmur - GI/Abdominal GI/Abdominal exam: Present: normal bowel sounds, soft. Absent: firm, tenderness - Extremities Exam Extremities exam: Present: normal inspection, normal capillary refill, full ROM. Absent: edema - Back Exam Back exam: Present: normal inspection - Neurological Exam Neurological exam: Present: alert, oriented X3 (Answers questions appropriately. Makes good eye contct. ) - Psychiatric Psychiatric exam: Present: normal affect, normal mood - Skin Skin exam: Present: normal color, warm, dry, intact Results - Labs CBC & BMP: 08/11/17 19:09 <White,Edel R - Last Filed: 08/11/17 21:29> Assessment and Plan (1) Dizziness Status: Acute Assessment and plan: orthostatic due to acute blood loss anemia, blood transfusion marialuisa Current Visit: Yes (2) Symptomatic anemia Status: Acute Assessment and plan: hgb every 6 hours, protonix Current Visit: Yes (3) Gastric tumor Status: Chronic Current Visit: Yes (4) Otalgia of left ear Status: Resolved Current Visit: No (5) Irregular heart rate Status: Acute Assessment and plan: ekg now Current Visit: Yes History of Present Illness History of present illness: Ms. Martínez is a 71 year old female seen and examined. Agree with above. Patient not talkative. Dr Mann to see her tomorrow. Hgb dropped down to 6.3 , denies black tarry or bloody stool. 2 units of PRBC stat. - Musculoskeletal Musculoskeletal: Present: muscle cramps - Neurological Neurological: Present: other (weakness ). Absent: syncope - Psychiatric Psychiatric: Present: depression - Hematologic/Lymphatic Hematologic/Lymphatic: Absent: easy bruising Exam - Constitutional Vitals: Period Temp Pulse Resp BP Sys/Lopez Pulse Ox Last 24 Hr 97.3 F 105 16 147/72 100 - Eye Eye exam: Absent: scleral icterus - ENT ENT exam: Present: normal external ear exam - Neck Neck exam: Absent: lymphadenopathy, thyromegaly - Cardiovascular Cardiovascular exam: Present: irregular rhythm, tachycardia. Absent: regular rate and rhythm - Neurological Exam Neurological exam: Present: CN II-XII intact, reflexes normal. Absent: motor sensory deficit - Psychiatric Psychiatric exam: Present: depressed, flat affect Results - Labs CBC & BMP: 08/11/17 19:09 08/11/17 19:09 Lab Results: I have reviewed the past 24 hour labs
[2017-08-12] MEDS: ONDANSETRON 4 MG/2 ML VIAL IV PRN ×2 (02:43→08:40)
[2017-08-12] MEDS: ACETAMINOPHEN 325 MG TABLET PO PRN ×2 (04:12→18:09)
[2017-08-12 05:29] LABS: Basophils % 0.3 % (0.0-0.8); Eosinophils # 0.2 10*3/uL (0.0-0.87); Eosinophils % 3.2 % (0.00-10.9); Hematocrit 26.7 VOL% (35.7-47.0); Hemoglobin 8.4 GM/DL (12.0-16.0); Immature Granulocytes % 0.8 %; Immature Granulocytes Absolute 0.05 #; Lymphocytes % 15.8 % (21.3-54.2); Mean Corpuscular HGB Conc 31.5 GM/DL (32-36); Mean Corpuscular Hemoglobin 27 PG (27-34); Mean Corpuscular Volume 85.6 FL (87-102); Mean Platelet Volume 9.5 FL (9.6-12.0); Monocytes # 0.9 10*3/uL (0.11-0.8); Monocytes % 13.8 % (1.7-12.7); Neutrophils # 4.4 10*3/uL (1.4-7.4); Neutrophils % 66.1 % (38.7-73.9); Platelet Count 387 T/CUMM (130-400); Red Blood Count 3.12 MC/CUMM (3.8-5.5); Red Cell Distribution Width 15.9 % (9.3-17.3); White Blood Count 6.6 T/CUMM (4-12)
[2017-08-12 05:52] LABS: PT Patient Result 10.4 SECS
[2017-08-12 06:00] LABS: Risk Ratio 2.66
[2017-08-12 06:06] LABS: % Iron Saturation 5.8 % (18-50); Ferritin 20.5 ng/ml (8-252)
--- NOTE | 2017-08-12 08:04 | Oncology Consult Note ---
Assessment and Plan - Time spent with patient Time spent with patient: Greater than 30 minutes (1) GIST (gastrointestinal stromal tumor), malignant Status: Acute Assessment and plan: I think Ms. Martínez would benefit from interventional radiology evaluating her for possible embolization of the area of tumor that is hemorrhaging into the stomach. The tumor is too large to provide embolization for the whole tumor. This would also impede blood supply and lower delivery of Gleevec once we place her on this. I also think she would benefit from iron replacement while she is in the hospital. I will hold off on starting this at this time since it is a 6 hour infusion and I do not want to interfere with interventional radiology schedule. I do not think she will be in the hospital but 1-2 days. Current Visit: Yes (2) Symptomatic anemia Status: Acute Current Visit: Yes History of Present Illness History of present illness: Ms. Martínez is a 71 year old female with newly diagnosed, large gastrointestinal stromal tumor of the stomach. She was just diagnosed with her GIST last month. The tumor is quite large measuring almost 15 cm and abutting the spleen. There is a 4-5 cm area within the stomach that was visible on EGD that had some active bleeding last month. Biopsy of this mass is what diagnosed the gist. She has seen surgery at [facility] who recommended neoadjuvant treatment before they consider resection given the size of this tumor. She presented to her primary provider yesterday complaining of dizziness. Her hemoglobin was found to be down to 6. This level was over 9 just 2 weeks ago during her hospital stay. She has been transfused 2 units of blood. She responded well to transfusion. Her symptoms have improved. Home Medications Medication Instructions Recorded Confirmed Type No Known Home Medications [No 08/11/17 08/11/17 History Known Home Medications] Allergies Allergy/AdvReac Type Severity Reaction Status Date / Time No Known Allergies Allergy Verified 07/22/17 18:28 Medical,Surgical,& Family Hx - Medical History Cardio: No history of: Cardiovascular Problems Psychological: No history of: Psychiatric Problems Neurology: No history of: Seizures HEENT: History of: Ear Problem (ear left pain) No history of: HEENT Problems Endocrine: No history of: Endocrine Problems Rheumatology: No history of;: Rheumatological Problems Respiratory: No history of: Respiratory Problems Renal: No history of: Renal Problems Genitourinary: No history of: Problems Gastrointestinal: No history of: GI Problems Musculoskeletal: No history of: Musculoskeletal Problems Hematology: History of: Anemia Reproductive: No history of: Reproductive Problems Other: No history of: Miscellaneous Medical Problems - Surgical History Abdominal Surgeries: Patient denies: Abdominal Surgery Reproductive Surgeries: Surgical HX of;: Hysterectomy Patient denies;: Genitourinary Surgery - Family History Family History: Reports;: Family Diabetes (mother), Family Hypertension (mother) Denies;: Family Cancer, Family Heart Disease, Family Stroke - Social History Smoking Status: Never smoker Frequency of Alcohol Use: None Type of Drug Use: None 12 point system: reviewed and no additional remarkable complaints except as stated - Constitutional Constitutional: Present: fatigue, weakness - EENT Nose, mouth and throat: Present: dizziness - Neurological Neurological ROS: Present: dizziness Exam - Constitutional Vitals: Period Temp Pulse Resp BP Sys/Lopez Pulse Ox Last 24 Hr 97.3 F-99.1 F 75-105 16-20 101-147/53-72 97-100 General appearance: normal weight, no acute distress - Head Head Exam: Present: normocephalic, atraumatic - Eye Eye Exam: Present: EOMI Pupils: Present: PERRL - ENT ENT exam: Present: normal exam, normal oropharynx - Neck Neck exam: Absent: lymphadenopathy, thyromegaly - Respiratory Respiratory exam: Present: CTAB. Absent: wheezes - Cardiovascular Cardiovascular exam: Present: RRR. Absent: JVD, tachycardia - GI/Abdominal GI/Abdominal exam: Present: soft. Absent: ascites, mass - Neurological Exam Neurological exam: Present: alert, oriented X3 - Psychiatric Psychiatric exam: Present: normal affect, normal mood - Skin Skin exam: Present: warm, dry Results - Labs CBC & BMP: 08/12/17 04:38 08/11/17 19:09 Lab Results: I have reviewed the past 24 hour labs
--- NOTE | 2017-08-12 08:31 | Order Completion Report ---
See report scanned to EMR
[2017-08-12] MEDS: SODIUM CHLORIDE 0.9% 1,000 ML IV SCH ×2 (08:40→13:50)
[2017-08-12] MEDS: PANTOPRAZOLE 40 MG TABLET PO SCH (08:42)
[2017-08-12] MEDS: POLYETHYLENE GLYCOL POWDER 17 GM PACK PO SCH (08:42)
--- NOTE | 2017-08-12 10:23 | Hospitalist Progress Note ---
Assessment and Plan (1) Symptomatic anemia Status: Acute Assessment and plan: Transfuse packed red blood cells as needed. hemoglobin this morning 8.3. Current Visit: Yes (2) Gastric tumor Status: Chronic Assessment and plan: Follow-up interventional radiology consult regarding embolization of bleeding tumor. Oncology notes reviewed. Current Visit: Yes Hospitalist: Subjective Interval history: Patient seen and examined. No acute events overnight. Case discussed with nursing staff. Labs reviewed. Oncology consultation reviewed. Interventional radiology consultation pending. The patient reports some improvement in her symptoms after transfusion of 2 units of packed red blood cells. Exam - Constitutional Vitals: Period Temp Pulse Resp BP Sys/Lopez Pulse Ox Last 24 Hr 97.3 F-99.1 F 74-105 16-20 101-147/53-72 97-100 Exam: Constitutional System: No distress. No tremulousness. Head: Normocephalic, atraumatic. Ears, Nose and Throat System: No pain or tenderness. No epistaxis or discharge Eyes System: Pupils equal, round, and reactive. Extraocular muscles intact. Neck: Supple, without adenopathy, No jugular venous distention. No thyromegaly, neck mass, or prior surgery apparent. Respiratory System: Chest clear to auscultation. Cardiovascular System: Heart with regular rate and rhythm. No murmur. GI System: Abdomen soft, nontender. Normo active bowel sounds present. Musculoskeletal System: limbs with no pedal edema. Full distal pulses. Normal capillary refill. Neurological System: No discernable sensory deficit. No aphasia Psychiatric System: Conversation is rational Results - Labs CBC & BMP: 08/12/17 04:38 08/11/17 19:09 Lab Results: I have reviewed the past 24 hour labs
--- NOTE | 2017-08-12 13:20 | Inventional Radiology Consult ---
Assessment and Plan - Time spent with patient Time spent with patient: Less than 30 minutes (1) GIST (gastrointestinal stromal tumor), malignant Problem details: very large tumor, biopsy proven GIST and most likely cause of GI hemorrhage/anemia Status: Acute Assessment and plan: I think it is reasonable to attempt bland embolization of this tumor with large particles as there is no indication for chemoembolization in this setting of chronic hemorrhage and with a tumor of this size. At this point I see three possible issues related to tumor embolization. One is due to the size of the tumor the possibility of multiple feeding vessels and inability to significantly decrease blood flow may result in limited change in GI hemorrhage. Additionally, reviewing the current imaging, the blood supply to the tumor (likely arising from the left gastric artery and inferior phrenic artery as well as short gastric branches from the splenic artery) consists of very small vessels. This will be addressed at angiography and could result in difficulty with catheterization for embolization. Finally, due to the proximity to the stomach, embolization of the tumor this large with possibility of further tumoral necrosis and development of infection and/or abscess is a possibility. We'll give preop antibiotics and consider a postoperative course of p.o. antibiotics for prophylaxis. I discussed the risks and benefits of the patient agrees to proceed. Current Visit: Yes (2) Symptomatic anemia Problem details: due to chronic GI hemorrhage from GIST tumor Status: Acute Assessment and plan: getting PRBCs and Iron transfusion Current Visit: Yes IR Consult - Data of Consult Patient: new to practice Consult date: 08/12/17 Requesting Physician: Moy Mann - Consult Narrative Reason for consult: large GIST tumor with chronic GI hemorhage and anemia/ fatigue History of present illness: Mauricio is a 71 year old F With newly diagnosed large Gist tumor and chronic anemia/GI hemorrhage. Presents with weakness fatigue and dizziness. She is noted in the hospital with a hemoglobin of 6 and hematocrit of 20.7. Recent CT of the abdomen demonstrates the heterogeneously enhancing tumor measuring up to 15 cm primarily arising from the gastric wall in the left upper quadrant of the abdomen. Reportedly on endoscopy, there is an area of friable mucosa which is likely the source of chronic GI hemorrhage. Patient has been evaluated Ramu but due to the size of the tumor, there was no plan for immediate therapy. Due to the risk of chronic recurrent hemorrhage, the request was for evaluation for bland embolization. Patient is otherwise relatively healthy with no cardiac history. History of lung disease or kidney failure. No allergies. Review of systems otherwise negative. - Home Medications and Allergies Home Medications: Home Medications Medication Instructions Recorded Confirmed Type No Known Home Medications [No 08/11/17 08/11/17 History Known Home Medications] Allergies/Adverse Reactions: Allergies Allergy/AdvReac Type Severity Reaction Status Date / Time No Known Allergies Allergy Verified 07/22/17 18:28 12 point system: reviewed and no additional remarkable complaints except as stated Medical,Surgical,& Family Hx - Medical History Cardio: No history of: Cardiovascular Problems Psychological: No history of: Psychiatric Problems Neurology: No history of: Seizures HEENT: History of: Ear Problem (ear left pain) No history of: HEENT Problems Endocrine: No history of: Endocrine Problems Rheumatology: No history of;: Rheumatological Problems Respiratory: No history of: Respiratory Problems Renal: No history of: Renal Problems Genitourinary: No history of: Problems Gastrointestinal: No history of: GI Problems Musculoskeletal: No history of: Musculoskeletal Problems Hematology: History of: Anemia Reproductive: No history of: Reproductive Problems Other: No history of: Miscellaneous Medical Problems - Surgical History Abdominal Surgeries: Patient denies: Abdominal Surgery Reproductive Surgeries: Surgical HX of;: Hysterectomy Patient denies;: Genitourinary Surgery - Family History Family History: Reports;: Family Diabetes (mother), Family Hypertension (mother) Denies;: Family Cancer, Family Heart Disease, Family Stroke - Social History Smoking Status: Never smoker Frequency of Alcohol Use: None Type of Drug Use: None Exam - Labs CBC & BMP: 08/12/17 04:38 08/11/17 19:09 Lab Results: I have reviewed the past 24 hour labs Labs: INR 1.0 08/12/17 04:38 - Constitutional Vitals: Period Temp Pulse Resp BP Sys/Lopez Pulse Ox Last 24 Hr 97.3 F-99.1 F 74-105 16-20 101-147/53-72 96-100 General appearance: under weight - Eye Eye exam: Present: EOMI - Respiratory Respiratory exam: Present: clear to auscultation bilaterally - Cardiovascular Cardiovascular exam: Present: regular rate and rhythm - GI/Abdominal GI/Abdominal exam: Present: normal bowel sounds - Extremities Exam Extremities exam: Present: normal inspection - Neurological Exam Neurological exam: Present: alert, oriented X3 - Psychiatric Psychiatric exam: Present: normal affect, normal mood - Skin Skin exam: Present: normal color, dry
[2017-08-12] MEDS ORDERED: fentaNYL 100 MCG/2 ML VIAL IV ONE (13:29)
[2017-08-12] MEDS ORDERED: MIDAZOLAM 2 MG/2 ML VIAL IV ONE (13:29)
[2017-08-12] MEDS ORDERED: DIAZEPAM 5 MG TABLET PO ONE (13:29)
[2017-08-12] MEDS ORDERED: HEPARIN/NACL 0.9% 2 UNITS/ML 3,000 ML IV ONE (13:44)
[2017-08-12] MEDS ORDERED: fentaNYL 100 MCG/2 ML VIAL ONE (13:45)
[2017-08-12] MEDS ORDERED: MIDAZOLAM 2 MG/2 ML VIAL ONE (13:45)
--- NOTE | 2017-08-12 16:30 | Post Interventional Procedure ---
Pre-op diagnosis: large GIST tumor with chronic GI hemorrhage and symptomatic anemia Post-op diagnosis: same Procedure: celiac agiography with left gastric artery embolization Contrast: 90 mL [id number] Flouroscopy: 21.1 mins Radiologist: Pavel Daniel Anesthesia: conscious sedation Medications: 2 mg IV Versed 50 mcg IV Fentanyl Total Sedation Time: 95 min Specimens: none sent Estimated blood loss: minimal (5 mL) Complications: none Condition: stable Description/Findings: Celiac angiography demonstrates displaced stomach and spleen with minimal obvious branch vessel perfusion to the large necrotic tumor within the left upper quadrant of the abdomen. Splenic artery was initially evaluated but no small significant supply was evidence of the tumor. Subsequently, the left gastric artery was catheterized. This is the majority of the supply to the stomach and likely the area of the chronic tumoral bleeding. This vessel was embolized proximally with coils to reduce the pressure to this location. Because of the large size of the tumor, the entire mass could not be particle embolized as hoped initially. However, by reducing the pressure head from the main supply vessel, possibly this will allow for healing. There is additional supply to the tumor from the left inferior phrenic artery however, this is very distant from the gastric lumen and additional treatment at this location was felt to the not necessary. See formal dictation for details. Assessment and Plan - Time spent with patient Time spent with patient: Less than 30 minutes (1) GIST (gastrointestinal stromal tumor), malignant Problem details: very large tumor, biopsy proven GIST and most likely cause of GI hemorrhage/anemia Status: Acute Assessment and plan: I think it is reasonable to attempt bland embolization of this tumor with large particles as there is no indication for chemoembolization in this setting of chronic hemorrhage and with a tumor of this size. At this point I see three possible issues related to tumor embolization. One is due to the size of the tumor the possibility of multiple feeding vessels and inability to significantly decrease blood flow may result in limited change in GI hemorrhage. Additionally, reviewing the current imaging, the blood supply to the tumor (likely arising from the left gastric artery and inferior phrenic artery as well as short gastric branches from the splenic artery) consists of very small vessels. This will be addressed at angiography and could result in difficulty with catheterization for embolization. Finally, due to the proximity to the stomach, embolization of the tumor this large with possibility of further tumoral necrosis and development of infection and/or abscess is a possibility. We'll give preop antibiotics and consider a postoperative course of p.o. antibiotics for prophylaxis. I discussed the risks and benefits of the patient agrees to proceed. Current Visit: Yes (2) Symptomatic anemia Problem details: due to chronic GI hemorrhage from GIST tumor Status: Acute Assessment and plan: getting PRBCs and Iron transfusion Current Visit: Yes
[2017-08-13] MEDS: SODIUM CHLORIDE 0.9% 1,000 ML IV SCH ×3 (02:21→13:24)
[2017-08-13] MEDS: ACETAMINOPHEN 325 MG TABLET PO PRN ×2 (03:57→15:49)
[2017-08-13 05:01] LABS: Basophils % 0.2 % (0.0-0.8); Eosinophils # 0.3 10*3/uL (0.0-0.87); Hematocrit 26.2 VOL% (35.7-47.0); Immature Granulocytes % 0.5 %; Immature Granulocytes Absolute 0.04 #; Lymphocytes # 1.4 10*3/uL (1.4-4.0); Lymphocytes % 16.1 % (21.3-54.2); Mean Corpuscular HGB Conc 30.5 GM/DL (32-36); Mean Corpuscular Hemoglobin 27 PG (27-34); Mean Corpuscular Volume 86.8 FL (87-102); Mean Platelet Volume 9.6 FL (9.6-12.0); Monocytes # 0.9 10*3/uL (0.11-0.8); Monocytes % 10.8 % (1.7-12.7); Neutrophils # 5.9 10*3/uL (1.4-7.4); Neutrophils % 69.4 % (38.7-73.9); Platelet Count 382 T/CUMM (130-400); Red Blood Count 3.02 MC/CUMM (3.8-5.5); White Blood Count 8.4 T/CUMM (4-12)
[2017-08-13] MEDS ORDERED: diphenhydrAMINE 50 MG/1 ML VIAL IV ONE (07:43)
[2017-08-13] MEDS ORDERED: ACETAMINOPHEN 500 MG TABLET PO ONE (07:43)
--- NOTE | 2017-08-13 07:46 | Oncology Progress Note ---
Assessment and Plan (1) Symptomatic anemia Problem details: due to chronic GI hemorrhage from GIST tumor Status: Acute Current Visit: Yes (2) GIST (gastrointestinal stromal tumor), malignant Status: Acute Current Visit: Yes (3) GI bleed Status: Acute Current Visit: Yes Oncology Subjective PN Interval history: Ms. Martínez is doing well this morning. She states she feels better than she did upon admission. She has now had the imaging gastric tumor embolized by interventional radiology. Her hemoglobin is essentially stable overnight. I think it is prudent to watch her for another 24 hours to make sure this does not decrease any further. I will give her infusional iron today to replace her iron stores. Have her to get my nurse in clinic working on ordering Gleevec. If her hemoglobin in the morning is less than 8 we will likely need to transfuse her before she is discharged. I will be out tomorrow so I will not be rounding her as a senior safety management consultant. I see no reason that she will need to stay in the hospital any longer after tomorrow unless her hemoglobin drops dramatically. I will set her up for a follow-up appointment with me in a couple weeks in clinic. She was previously scheduled to see me tomorrow in clinic but she does not need to keep that appointment. Exam - Constitutional Vitals: Period Temp Pulse Resp BP Sys/Lopez Pulse Ox Last 24 Hr 97.2 F-99.0 F 66-88 16-20 104-141/53-81 95-100 General appearance: normal weight, no acute distress - Head Head Exam: Present: normocephalic, atraumatic - Eye Eye Exam: Present: EOMI Pupils: Present: PERRL - ENT ENT exam: Present: normal exam, normal oropharynx - Neck Neck exam: Absent: lymphadenopathy, thyromegaly - Respiratory Respiratory exam: Present: CTAB. Absent: wheezes - Cardiovascular Cardiovascular exam: Present: RRR. Absent: JVD - GI/Abdominal GI/Abdominal exam: Absent: ascites, distended - Neurological Exam Neurological exam: Present: alert, oriented X3 - Psychiatric Psychiatric exam: Present: normal affect, normal mood - Skin Skin exam: Present: warm, dry Results - Labs CBC & BMP: 08/13/17 03:48 08/11/17 19:09 Lab Results: I have reviewed the past 24 hour labs
[2017-08-13] MEDS ORDERED: IRON DEXTRAN 25 MG in SYRINGE 1 EACH IV ONE (08:00)
[2017-08-13] MEDS ORDERED: DEXAMETHASONE INJ 10 MG in SODIUM CHLORIDE 0.9% 50 ML IV ONE (08:00)
[2017-08-13] MEDS ORDERED: IRON DEXTRAN 975 MG in SODIUM CHLORIDE 0.9% 500 ML IV ONE (09:00)
[2017-08-13] MEDS: PANTOPRAZOLE 40 MG TABLET PO SCH (09:03)
[2017-08-13] MEDS: POLYETHYLENE GLYCOL POWDER 17 GM PACK PO SCH (09:04)
--- NOTE | 2017-08-13 10:52 | Interventional Radiology Rpt ---
IR angio celiac, IR embolization for hemorrhage, IR angio mesenteric, IR angio each add vessel, IR angio each add vessel, IR angio each add vessel, IR angio each add vessel, IR angio each add vessel, IR angio each add vessel Clinical Information: 71-year-old female with history of large gastrointestinal stromal tumor with symptomatic anemia and prior endoscopy showing areas of mucosal hemorrhage within the gastric lumen. Patient is not acutely bleeding but indices suggest long-term bleeding likely from the large necrotic tumor. Physician: Dr. Daniel Procedure: The patient was advised of the benefits, risks, and alternatives of the procedure and informed consent was obtained. A time out was performed with verification of the patient's name, MRN, site of procedure, and type of procedure to be performed. The patient was positioned in the supine position on the angiographic table. The site was prepped and draped in the usual sterile fashion. Moderate sedation was performed by the physician including the presence of an independent trained observer that assisted in monitoring the patient's level of consciousness and physiological status. Following the administration of 2 mg intravenous Versed and 50 mcg intravenous fentanyl the physician spent 95 minutes of continuous [id number] time with the patient. A button grader radiograph reveals no relevant abnormality. 1% lidocaine was used for local anesthesia. The right common femoral artery was accessed with a microintroducer set. A short 0.018" wire was inserted and the needle was exchanged for a 4 Fr microintroducer sheath. The guidewire and dilator were removed and a 0.035" J-wire was advanced into the abdominal aorta. A 6 Fr sheath was placed over the wire. A 5F C2 catheter was inserted through the sheath and placed into the upper abdominal aorta. Superior mesenteric artery was catheterized. Arteriogram demonstrates normal appearance of the superior mesenteric artery and is jejunal branches. There is no obvious branch vessel or arterial supply to the targeted gastric tumor. Subsequently, the celiac artery was catheterized. Celiac arteriogram demonstrates enhancement within the spleen. There are also multiple vessels extending from the spleen to the large tumor which causes mass effect upon the stomach. The splenic artery was subselectively catheterized. Arteriogram suggests at least some small branch vessel supply to the tumor although the majority of supply appears to be to the spleen. Motion somewhat limits evaluation. A 2.8 Fr Progreat microcatheter was then inserted through the diagnostic catheter. Distal branch vessel from the splenic artery was subselectively catheterized. Arteriogram from this vessel demonstrates possible tumoral blush. However, cone beam CT was performed and reconstruction images were evaluated in a separate workstation. This demonstrates primarily supply to the spleen only. Therefore, no treatment was performed at this location. Upon removal of the microcatheter from this location, there was a small dissection noted within the splenic artery. This dissection had resolved/healed spontaneously by the conclusion of the procedure. The microcatheter was removed. Repeat catheterization of the celiac artery was performed and arteriogram again demonstrates the left gastric and left inferior phrenic origins. The left gastric artery was individually/subsequently catheterized with the microcatheter. Arteriogram with the microcatheter this location demonstrates supply primarily to the stomach and suggestion of significant tumoral supply at the area of the stomach mucosa suggested to be the area of hemorrhage previously. Again, cone beam CT was performed with the microcatheter in this location and reconstruction images were reviewed at a separate workstation. There is noted tumoral blush supplied via the left gastric artery. Therefore, embolization of this vessel will be performed proximally. Repeat arteriogram to confirm microcatheter position was performed within the branch vessel of the left gastric artery. Vessel measurements were obtained. 2 separate 4 x 130 mm Terumo detachable coils were advanced into the left gastric artery proximally and embolization was performed. Final arteriogram via the microcatheter demonstrates no significant forward flow via the left gastric artery following embolization. Again the microcatheter was removed and repeat arteriogram was performed of the proximal celiac artery. This again shows the left inferior phrenic artery be hypertrophied with similar suggestion of supply to the superior margin of the tumor. At this point, the small dissection within the splenic artery have also resolved with similar appearance of the splenic enhancement and small vessel supply to the tumor again also noted. Attempts were made to catheterize the left inferior phrenic artery, this was unsuccessful and felt to be of little additional benefit. Microcatheter was removed. The common hepatic artery was catheterized. Arteriogram demonstrates essentially normal appearance of hepatic vasculature with no comparison to advanced flow visualized. The delayed images do demonstrate some residual enhancement within the left gastric artery, suggestive of significantly decreased perfusion within the left gastric artery and likely via retrograde flow from the right gastric artery, as expected. The microcatheter and diagnostic catheter were removed without difficulty. The right femoral sheath was removed and pressure was held at the puncture site for 10 minutes to obtain hemostasis. Sterile dressing was applied. The patient tolerated the procedure well and was returned to the inpatient room in in stable condition. EBL: < 5 mL. Complications: None. Fluoroscopy time: 21.1 minutes Total number of images for the procedure: 1660 Conclusion: 1. Large tumor within the left upper quadrant of the abdomen with predominant supply likely via the left gastric artery and accessory supply via small branch vessels from the splenic artery circulation and left inferior phrenic artery. 2. Successful coil embolization of the proximal left gastric artery in attempt to reduce the direct arterial pressure to the areas of the tumor associated with the gastric mucosa. 3. Small splenic artery dissection was noted which resolved spontaneously by the conclusion of the procedure. Plan: If the patient continues to have symptomatic anemia, could consider proximal splenic artery embolization as well to further reduce the arterial pressures to this large necrotic tumor via multiple small splenic artery branch vessel collaterals. However, there is a small risk of splenic ischemia/infarct and, therefore, this method was not considered at the first attempt. PROCEDURE INTERPRETED AT [facility] DEPARTMENT OF RADIOLOGY Final Report Signed by: Pavel Daniel
--- NOTE | 2017-08-13 11:57 | Hospitalist Progress Note ---
Assessment and Plan (1) Symptomatic anemia Problem details: due to chronic GI hemorrhage from GIST tumor Status: Acute Assessment and plan: Transfuse packed red blood cells as needed. hemoglobin this morning 8.0. IV iron ordered for today. Repeat CBC in a.m. Current Visit: Yes (2) Gastric tumor Status: Chronic Assessment and plan: Interventional radiology consult reviewed. Embolization performed yesterday. Oncology notes reviewed. Current Visit: Yes Hospitalist: Subjective Interval history: Patient seen and examined. No acute events overnight. Case discussed with nursing staff. Labs reviewed. Case discussed with Dr. Mann. Patient looks and feels better today. Embolization was successful. She is receiving IV iron today and will likely be discharged home in the morning. A repeat CBC will be ordered prior to discharge. Exam - Constitutional Vitals: Period Temp Pulse Resp BP Sys/Lopez Pulse Ox Last 24 Hr 97.2 F-99.0 F 66-88 16-20 104-141/53-81 95-100 Exam: Constitutional System: No distress. No tremulousness. Head: Normocephalic, atraumatic. Ears, Nose and Throat System: No pain or tenderness. No epistaxis or discharge Eyes System: Pupils equal, round, and reactive. Extraocular muscles intact. Neck: Supple, without adenopathy, No jugular venous distention. No thyromegaly, neck mass, or prior surgery apparent. Respiratory System: Chest clear to auscultation. Cardiovascular System: Heart with regular rate and rhythm. No murmur. GI System: Abdomen soft, nontender. Normo active bowel sounds present. Musculoskeletal System: limbs with no pedal edema. Full distal pulses. Normal capillary refill. Neurological System: No discernable sensory deficit. No aphasia Psychiatric System: Conversation is rational Results - Labs CBC & BMP: 08/13/17 03:48 08/11/17 19:09 Lab Results: I have reviewed the past 24 hour labs
[2017-08-13] MEDS ORDERED: SENNA 8.6 MG TABLET PO PRN (13:59)
[2017-08-13] MEDS ORDERED: LINACLOTIDE 145 MCG CAPSULE PO PRN (15:07)
[2017-08-13] MEDS: ONDANSETRON 4 MG/2 ML VIAL IV PRN (15:47)
[2017-08-14] MEDS: ONDANSETRON 4 MG/2 ML VIAL IV PRN ×2 (00:46→07:26)
[2017-08-14 06:15] LABS: Basophils % 0.2 % (0.0-0.8); Eosinophils % 0.4 % (0.00-10.9); Hematocrit 28.1 VOL% (35.7-47.0); Hemoglobin 8.7 GM/DL (12.0-16.0); Immature Granulocytes % 0.4 %; Immature Granulocytes Absolute 0.04 #; Lymphocytes # 1.6 10*3/uL (1.4-4.0); Mean Corpuscular Hemoglobin 26 PG (27-34); Mean Corpuscular Volume 85.4 FL (87-102); Mean Platelet Volume 9.5 FL (9.6-12.0); Monocytes # 1.4 10*3/uL (0.11-0.8); Monocytes % 13.1 % (1.7-12.7); Neutrophils # 7.3 10*3/uL (1.4-7.4); Neutrophils % 70.9 % (38.7-73.9); Platelet Count 393 T/CUMM (130-400); Red Blood Count 3.29 MC/CUMM (3.8-5.5); Red Cell Distribution Width 15.7 % (9.3-17.3); White Blood Count 10.3 T/CUMM (4-12)
[2017-08-14] MEDS: ACETAMINOPHEN 325 MG TABLET PO PRN (07:49)
[2017-08-14] MEDS: PANTOPRAZOLE 40 MG TABLET PO SCH ×2 (07:50→08:02)
[2017-08-14] MEDS: POLYETHYLENE GLYCOL POWDER 17 GM PACK PO SCH ×2 (07:54→08:02)
[2017-08-14 08:46] VITALS: BP 123/72
--- NOTE | 2017-08-14 10:23 | Discharge Summary ---
Hospital Course - Hospital Course Hospital Course: 71-year-old female with a gastric tumor admitted to the hospital for symptomatic anemia with a hemoglobin of 6. She was transfused 2 units of packed red blood cells and today her hemoglobin is up to 8.7. She received IV iron infusion yesterday. During the course of the hospitalization she was seen in consultation by her oncologist Dr. Mann and Dr. Daniel, interventional radiology. She underwent embolization of the tumor to stop the bleeding. This appears to have been successful. She is going to start chemotherapy next week. She is reached maximal benefit from this inpatient hospitalization and is no longer symptomatic from her anemia. Hemoglobin has been stable over the last 48 hours. She is being discharged home to follow-up with her primary care physician and her oncologist as an outpatient. A new prescription was given for Linzess and Zofran on discharge. - Time spent with patient Time with patient DS: Greater than 30 minutes (Total discharge time for this patient, including [id number] time, clinical documentation, medication reconciliation, and discharge planning was 33 minutes.) Diagnosis - Discharge Diagnosis (1) Symptomatic anemia Status: Resolved (2) Gastric tumor Status: Chronic Discharge Plan - Discharge Data Disposition: Disch To Home/Self Care Condition at Discharge: Stable Discharge Diet: advance to your usual diet Activity: resume usual activities as tolerated Hygiene: no restrictions Weight Bearing at Discharge: full weight bearing Driving: no restrictions - Discharge Medications New Linaclotide [Linzess] 290 mcg PO DAILY PRN #60 capsule PRN Reason: Constipation Ondansetron Tab [Zofran Tab] 4 mg PO Q4H #20 tablet - Follow Up or Referral - Forms/Instructions Additional Discharge Instructions: Follow-up with your primary care physician and oncologist next week as scheduled. Exam - Constitutional Vitals: Period Temp Pulse Resp BP Sys/Lopez Pulse Ox Last 24 Hr 97.1 F-99.0 F 77-113 18-24 121-154/57-85 91-99 Discharge Results Procedures and tests throughout hospitalization: Pending Orders 08/11/17 21:14 Occult Blood, Stool Routine Labs on day of discharge: Labs from last 24 hours 08/14/17 05:28 WBC 10.3 RBC 3.29 L Hgb 8.7 L Hct 28.1 L MCV 85.4 L MCH 26 L MCHC 31.0 L RDW 15.7 Plt Count 393 MPV 9.5 L Neut % (Auto) 70.9 Lymph % (Auto) 15.0 L [place] % (Auto) 13.1 H Eos % (Auto) 0.4 Baso % (Auto) 0.2 Neut # (Auto) 7.3 Lymph # (Auto) 1.6 [place] # (Auto) 1.4 H Eos # (Auto) 0.0 Baso # (Auto) 0.0 Immature Gran % 0.4 Nucleated RBC % 0.0 Immature Gran # 0.04 Nucleated RBCs # 0.00 Immature Plt Fraction 0.0 DS: Provider Date of admission: 08/12/17 13:29 Primary care physician: Linda Lubin MD Attending physician on admission: David Olmos MD Consults: 08/11/17 18:38 Consult to Physician [CONS] Routine Comment: Newly diagnosed gastric CA Consulting Provider: Moy Mann Discharging clinician: David Olmos MD Expected date of discharge: 08/14/17
== END 2017-08-14 11:10 | disposition home or self-care (01) | DRG 543 ==
LOC: N.4E 17:59 → INTOOBSV 17:59
PROVIDERS: ADMIT Family Medicine; ATTEND Family Medicine
PROC: IRAGMES (2017-08-12 14:10)